=== PATIENT | male | born 1970 | race Two or more races ===

== ENCOUNTER 2022-09-10 08:12 | Outpatient (REF) | payer MEDICARE, MEDICAID, SELFPAY ==
--- NOTE | ~2022-09-10 | XR_ITS ---
EXAMINATION: XR FOOT, RIGHT CLINICAL INFORMATION: Right foot pain COMPARISON: None available. TECHNIQUE: 3 views of the right foot. FINDINGS: No acute fracture or subluxation. Small osteophytes are present at the anterior aspect of tibiotalar joint. At the great toe metatarsophalangeal joint, there is narrowing of the articular cartilage space, subarticular sclerosis, osteophytosis, and approximately 20 degrees of hallux valgus deformity. No erosions or periostitis. Peripheral vascular calcifications are noted. XR/XR foot RT 2V IMPRESSION: * No acute osseous injury in the right foot. 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
[2022-09-10 11:27] LABS: C Reactive Protein 1.42 mg/dL (< or = 0.50)
[2022-09-10 11:55] LABS: Erythrocyte Sedimentation Rate 37 MM/HR (0-15)
== END 2022-09-10 08:13 | disposition home or self-care (01) ==
LOC: HO.XRAY 08:12
PROVIDERS: PCP Internal Medicine; Visit Provider Nurse Practitioner Family
DX: M79.671 Pain in right foot (principal); M17.0 Bilateral primary osteoarthritis of knee
CPT/HCPCS: 36415; 73620; 85652; 86140; 99202

== ENCOUNTER → 2022-09-16 10:38 | Outpatient (BNVA) | payer MEDICARE, MEDICAID, SELFPAY | PROVIDERS: PCP Internal Medicine; Visit Provider Nurse Practitioner Family | DX: M17.0 Bilateral primary osteoarthritis of knee (principal); M79.7 Fibromyalgia | CPT/HCPCS: 20610 ==